=== PATIENT | female | born 1975 | race Two or more races ===

== ENCOUNTER 2023-03-25 07:01 | Emergency (ER) | payer MEDICAID ==
[~2023-03-25] VITALS: Ht 170.2 cm; Wt 70.8 kg
[2023-03-25] MEDS ORDERED: CARI350T PO (08:00)
[2023-03-25] MEDS ORDERED: HYDROCODONE/APAP 5/325MG TABLET PO ONE (08:00)
[2023-03-25] MEDS ORDERED: HYDROCODONE/APAP 5/325MG TABLET ONE (08:02)
[2023-03-25 08:56] VITALS: BP 142/79; TEMP 97.9; O2SAT 99
== END 2023-03-25 09:19 | disposition home or self-care (01) ==
LOC: ER 07:02
DX: S33.5XXA Sprain of ligaments of lumbar spine, initial encounter (principal); V39.40XA Driver of three-wheeled motor vehicle injured in collision with unspecified motor vehicles in traffic accident, initial encounter; Y93.89 Activity, other specified; Y92.89 Other specified places as the place of occurrence of the external cause; Y99.8 Other external cause status
CPT/HCPCS: 72110-TC